=== PATIENT | female | born 1965 | race Caucasian/White ===

== ENCOUNTER 2017-01-27 14:37 | Inpatient (IN) | payer OTHER ==
[~2017-01-27] VITALS: Ht 157.5 cm; Wt 194.0 kg
[~2017-01-27 14:37] MED LIST: ACETAZOLAMIDE500 MG PO; ALAVERT10 MG PO; AMMONIUM LACTA224 GM TP; ANTIFUNGAL15 G1 TP; ASPIR-LOW81 MG PO; ATROVENT H200 INHALA IH; BIOTENE ORALBAL45 ML MM; BUTRANS1 EAC4 TD; CLEOCIN300 MG PO; CLONAZEPAM0.5 MG PO; CLOTRIMAZOLE-BE15 GM TP; COMBIVENT; COMBIVENT200 INHALA IH; CYCLOBENZAPRINE5 MG PO; CYMBALTA30 MG PO; CYMBALTA60 MG PO; Cymbalta PO; DARVOCET-N 1001 EAC1 PO; DIAMOX PO; DIAMOX SEQUELS500 MG PO; DITROPAN XL10 MG PO; DOXYCYCLINE HY100 MG PO; DULERA 100 MCG/13 GM IH; DULERA 200 MCG/13 GM IH; DULOXETINE HCL60 MG PO; FAMCICLOVIR500 MG PO; FLEXERIL10 MG PO; FLEXERIL5 MG PO; FLONASE16 G1 BOTH NARES; FLOVENT DISKUS1 DIS2; FLOVENT DISKUS1 DIS2 IH; FOLIC ACID1 MG PO; Famvir PO; GABAPENTIN300 MG; GABAPENTIN300 MG PO; GABAPENTIN600 MG PO; GLUCOPHAGE XR750 MG PO; GOLD BOND ULT D96 GM TP; HUMALOG100 UNIT/1 SC; HYDROCODON-ACE1 EAC7 PO; IBUPROFEN800 MG PO; ICY HOT CREAM35.4 G1 TP; JANUVIA100 MG PO; JANUVIA25 M1 PO; KEFLEX250 MG PO; KEFLEX500 MG PO; KENALOG,ARISTOC80 GM TP; KLONOPIN0.5 M1 PO; KlonoPIN PO; LAC-HYDRIN 5113 GM TP; LAMICTAL XR100 MG; LAMICTAL XR100 MG PO; LAMICTAL XR200 MG; LAMICTAL XR300 MG PO; LAMICTAL100 MG PO; LAMICTAL200 MG PO; LAMOTRIGINE100 MG PO; LASIX20 MG PO; LASIX40 MG PO; LASIX80 MG PO; LEVEMIR FL100 UNIT/1 SC; LEVEMIR100 UNIT/2 SC; LEVOTHROID200 MCG PO; LEVOTHYROXINE200 MC1 PO; LISINOPRIL-HCT1 EAC3 PO; LISINOPRIL-HCT1 EACH PO; Levothroid,Synthroid PO; METFORMIN HCL500 MG PO; METFORMIN HCL750 MG PO; METHYLDOPA250 MG PO; MOTRIN800 MG PO; NEOSPORIN + P28.3 GM TP; NEURONTIN300 MG PO; NEURONTIN600 MG PO; NEXIUM20 MG PO; NEXIUM40 MG PO; NICOTINE PATCH1 EAC2 TD; NORCO 5/3251 TABLET PO; NOVOLOG PE100 UNITS/ SC; NUCYNTA ER50 MG PO; NUCYNTA50 MG PO; Neurontin PO; OMEPRAZOLE40 M1 PO; ONDANSETRON ODT4 MG PO; OXYBUTYNIN CHLOR5 M1 PO; OXYCODONE-ACET1 EACH PO; OXYCONTIN10 MG PO; PLAVIX75 MG PO; POTASSIUM CHLO20 ME1 PO; PRAVACHOL40 MG PO; PRINZIDE 20-121 EACH PO; PROAIR HFA8.5 GM IH; PROVENTIL,2.5 MG/0.5 IH; PROVENTIL,2.5 MG/3 M IH; Proair HFA IH; REQUIP0.25 MG PO; REQUIP1 MG PO; REQUIP2 MG PO; ROPINIROLE HCL1 MG PO; SIMVASTATIN20 MG PO; SINGULAIR10 MG PO; SYMBICORT60 INHALAT IH; SYNTHROID200 MCG PO; SYNTHROID50 MCG PO; Singulair PO; TRAMADOL HCL50 MG PO; ULTRAM50 MG PO; VALACYCLOVIR500 MG PO; VALTREX1000 MG PO; VALTREX50 MG/ML PO; VENTOLIN HFA18 GM IH; VIBRAMYCIN100 MG PO; VITAMIN D31000 UNI2 PO; VITAMIN D310000 UNIT PO; ZESTORETIC 20-1 EAC2 PO; ZOCOR20 MG PO; ZOFRAN ODT4 MG PO; ZUPLENZ4 MG PO; Zestoretic,Prinzide PO; Zocor PO; [UNRECOGNIZED DRUG - OTHER]
[2017-01-27 15:29] LABS: POINT-OF-CARE METER ID UU13113702
[2017-01-27 15:53] LABS: EOSINOPHIL (%) 2.1 % (0-5); EOSINOPHIL COUNT 0.2 K/uL (0-0.3); HEMATOCRIT 41.6 % (36.0-46.0); IMMATURE GRANULOCYTE (%) 0.3 % (0.0-0.7); IMMATURE GRANULOCYTE COUNT 0.3 K/uL; LYMPHOCYTE COUNT 1.8 K/uL (1.0-2.8); MCH 26.3 PG (29.0-34.0); MCHC 28.6 G/DL (30.0-36.0); MEAN PLAT.VOLUME 9.3 uM^3 (9.5-12.4); MONOCYTE (%) 4.7 % (3-12); MONOCYTE COUNT 0.5 K/uL (0-0.8); NEUTROPHIL (%) 73.9 % (45-76); NEUTROPHIL COUNT 7.3 K/uL (1.8-6.4); PLATELET COUNT 285 K/uL (156-360); RBC DIS.WIDTH-CV 17.9 % (11.8-14.6); RBC DIS.WIDTH-SD 57.8 % (39-53); RED BLOOD COUNT 4.52 M/uL (3.80-5.20); WHITE BLOOD COUNT 9.9 K/uL (4.1-10.2)
[2017-01-27 16:05] LABS: CHLORIDE 96 mEq/L (99-109); POTASSIUM 3.9 mEq/L (3.7-5.4); SODIUM 135 mEq/L (136-147)
[2017-01-27 16:07] LABS: GLUCOSE 150 mg/dL (70-99)
[2017-01-27 16:08] LABS: ANION GAP 14 MEQ/L (2-14)
[2017-01-27 16:09] LABS: TOTAL BILIRUBIN 0.5 mg/dL (0.0-1.0)
[2017-01-27 16:10] LABS: ALKALINE PHOSPHATASE 100 IU/L (3-129)
[2017-01-27 16:11] LABS: GFR ESTIMATE (CALCULATED) 14 mL/min/
[2017-01-27 16:12] LABS: UREA NITROGEN (BUN) 28 mg/dL (9-23)
[2017-01-27 16:13] LABS: TROP-I INTERPRETATION NEGATIVE; TROPONIN-I < 0.01 ng/mL (0.0-0.30)
[2017-01-27 18:15] LABS: ADD MIUA? YES; BILIRUBIN MODERATE; BLOOD NEGATIVE; COLOR AMBER ((YELLOW)); GLUCOSE (STRIP) NEGATIVE; KETONES 5; LEUKOCYTES TRACE; NITRITE NEGATIVE; PROTEIN (STRIP) 100; SPECIFIC GRAVITY 1.023 (1.000-1.030)
[2017-01-27 18:37] LABS: BACTERIA RARE /HPF; EPITHELIAL CELLS 1+ /HPF; HYALINE CASTS 0-5 /LPF; MUCUS TRACE /LPF; WHITE BLOOD CELLS 20-30 /HPF (0-5); WHITE BLOOD CELLS CLUMP FEW /HPF (0-5)
[2017-01-27 18:46] LABS: ICTOTEST NEGATIVE
[2017-01-27] MEDS ORDERED: ALBUTEROL2.5 MG/3 M IH (19:50)
[2017-01-27] MEDS ORDERED: LOTRISONE15 GM TP (19:52)
[2017-01-27] MEDS ORDERED: CYMBALTA60 MG PO (19:52)
[2017-01-27] MEDS ORDERED: FLEXERIL5 MG PO (19:53)
[2017-01-27] MEDS ORDERED: DIAMOX SEQUELS500 MG PO (19:54)
[2017-01-27] MEDS ORDERED: DULERA 200 MCG/13 GM IH (19:54)
[2017-01-27] MEDS ORDERED: FLONASE16 G1 BOTH NARES (19:54)
[2017-01-27] MEDS ORDERED: LASIX40 MG PO (19:55)
[2017-01-27] MEDS ORDERED: NEURONTIN300 MG PO (19:57)
[2017-01-27] MEDS ORDERED: HUMALOG100 UNIT/1 SC ×2 (19:58→19:59)
[2017-01-27] MEDS ORDERED: PERCOCET 5/31 TABLET PO (19:59)
[2017-01-27] MEDS ORDERED: MOTRIN800 MG PO (20:00)
[2017-01-27] MEDS ORDERED: KLONOPIN0.5 M1 PO (20:00)
[2017-01-27] MEDS ORDERED: JANUVIA100 MG PO (20:00)
[2017-01-27] MEDS ORDERED: LAMICTAL XR100 MG PO (20:02)
[2017-01-27] MEDS ORDERED: LEVEMIR100 UNIT/2 SC (20:02)
[2017-01-27] MEDS ORDERED: SYNTHROID200 MCG PO (20:02)
[2017-01-27] MEDS ORDERED: OXYBUTYNIN CHLOR5 M1 PO (20:03)
[2017-01-27] MEDS ORDERED: ZOFRAN4 MG PO (20:03)
[2017-01-27] MEDS ORDERED: PROAIR HFA8.5 GM IH (20:03)
[2017-01-27] MEDS ORDERED: PRINZIDE 20-121 EACH PO (20:03)
[2017-01-27] MEDS ORDERED: SINGULAIR10 MG PO (20:04)
[2017-01-27] MEDS ORDERED: REQUIP1 MG PO (20:04)
[2017-01-27] MEDS ORDERED: VALTREX1000 MG PO (20:05)
[2017-01-27] MEDS ORDERED: SYNTHROID50 MCG PO (20:06)
[2017-01-27 23:40] VITALS: BP 125/55
[2017-01-27 23:50] VITALS: BP 126/55
[2017-01-28] VITALS (43 sets, daily range): BP systolic 65–151; BP diastolic 35–81
[2017-01-28 00:36] LABS: ADD MIUA? NO; BILIRUBIN NEGATIVE; BLOOD NEGATIVE; COLOR STRAW ((YELLOW)); GLUCOSE (STRIP) NEGATIVE; KETONES NEGATIVE; LEUKOCYTES NEGATIVE; NITRITE NEGATIVE; PROTEIN (STRIP) NEGATIVE; SPECIFIC GRAVITY 1.005 (1.000-1.030); UROBILINOGEN 0.2 MG/DL (0.2-1.0)
[2017-01-28 00:47] LABS: BASE EXCESS 0.4 mEq/L (-3 to +3); BICARBONATE 29.6 mEq/L (22-26); CARBOXY HGB 4.5 % (0-5); COMMENTS - BLOOD GASES C+; METHEMOGLOBIN 1.4 % (0-1.5); PCO2 69 mm Hg (35-45); PO2 70 mm Hg (80-100); SITE LR; pH 7.24 (7.35-7.45)
[2017-01-28 00:48] LABS: DEVICE NC; O2 FLOW 4 L/MIN; TOTAL RESP RATE 16 resp/min
[2017-01-28 01:24] LABS: METH RESISTANT S AUREUS PCR NEGATIVE (NEGATIVE)
[2017-01-28 01:25] LABS: PROBE CHECK PASS; SPECIMEN PROCESSING CONTROL PASS
[2017-01-28 02:09] LABS: POINT-OF-CARE METER ID UU13113731
[2017-01-28 02:14] LABS: BASE EXCESS 0.5 mEq/L (-3 to +3); BICARBONATE 28.9 mEq/L (22-26); CARBOXY HGB 4.1 % (0-5); METHEMOGLOBIN 1.2 % (0-1.5); PCO2 63 mm Hg (35-45); PO2 63 mm Hg (80-100); pH 7.27 (7.35-7.45)
[2017-01-28 02:15] LABS: COMMENTS - BLOOD GASES C+; DEVICE BIPAP 18/12; O2 FLOW 2 L/MIN; SITE LR; TOTAL RESP RATE 12 resp/min
[2017-01-28 04:25] LABS: AMPHETAMINES QUANT VALUE 0 NG/ML; BARBITUATES QUANT VALUE 0 NG/ML; BENZODIAZEPINES QUANT VALUE 0 NG/ML; BENZODIAZEPINES, URINE SCREEN Negative (200 ng/mL); MARIJUANA QUANT VALUE 0 NG/ML; OPIATES QUANTITATIVE VALUE 0 NG/ML; PHENCYCLIDINE QUANT VALUE 0 NG/ML
[2017-01-28 05:03] LABS: BASE EXCESS 3.3 mEq/L (-3 to +3); BICARBONATE 30.9 mEq/L (22-26); CARBOXY HGB 3.8 % (0-5); COMMENTS - BLOOD GASES C+; METHEMOGLOBIN 1.4 % (0-1.5); PCO2 60 mm Hg (35-45); PO2 57 mm Hg (80-100); SITE RR; pH 7.32 (7.35-7.45)
[2017-01-28 05:04] LABS: DEVICE BIPAP 18/12; O2 FLOW 2 L/MIN; TOTAL RESP RATE 16 resp/min
[2017-01-28 05:36] LABS: POINT-OF-CARE METER ID UU14174217
[2017-01-28 05:39] LABS: HEMATOCRIT 44.4 % (36.0-46.0); MCH 25.4 PG (29.0-34.0); MCHC 28.6 G/DL (30.0-36.0); MCV 88.8 FL (83-99); MEAN PLAT.VOLUME 9.5 uM^3 (9.5-12.4); PLATELET COUNT 315 K/uL (156-360); RBC DIS.WIDTH-CV 17.6 % (11.8-14.6); RBC DIS.WIDTH-SD 57.5 % (39-53); WHITE BLOOD COUNT 10.9 K/uL (4.1-10.2)
[2017-01-28 05:46] LABS: EOSINOPHIL (%) 1.8 % (0-5); EOSINOPHIL COUNT 0.2 K/uL (0-0.3); IMMATURE GRANULOCYTE (%) 0.3 % (0.0-0.7); LYMPHOCYTE COUNT 1.3 K/uL (1.0-2.8); MONOCYTE (%) 3.9 % (3-12); MONOCYTE COUNT 0.4 K/uL (0-0.8); NEUTROPHIL (%) 82.2 % (45-76)
[2017-01-28 06:11] LABS: ANION GAP 9 MEQ/L (2-14); CHLORIDE 98 MEQ/L (99-109); GLUCOSE 171 mg/dL (70-99); POTASSIUM 3.9 MEQ/L (3.7-5.4); SAMPLE HEMOLYSIS CHECK 0; SAMPLE ICTERIC CHECK 0; SAMPLE LIPEMIA CHECK 0; SODIUM 137 MEQ/L (136-147); UREA NITROGEN (BUN) 25 mg/dL (9-23)
[2017-01-28 06:32] LABS: GFR ESTIMATE (CALCULATED) 24 mL/min/
[2017-01-28 10:37] LABS: POINT-OF-CARE METER ID UU14174217
[2017-01-28 12:26] LABS: BASE EXCESS 3.5 mEq/L (-3 to +3); BICARBONATE 31.5 mEq/L (22-26); COMMENTS - BLOOD GASES AC+; METHEMOGLOBIN 1.2 % (0-1.5); O2 FLOW 2 L/MIN; PCO2 64 mm Hg (35-45); PO2 66 mm Hg (80-100); SITE LR
[2017-01-28 12:27] LABS: DEVICE NASAL CANNULA; TOTAL RESP RATE 14 resp/min
[2017-01-28] MEDS ORDERED: LAMICTAL100 MG PO (14:26)
[2017-01-28] MEDS ORDERED: REQUIP1 MG PO (14:27)
== END 2017-01-29 00:20 | disposition left against medical advice (07) | DRG 194 ==
LOC: EME 14:37 → EDOF 22:33 → 4WEST 22:33
PROVIDERS: Emergency Medicine; Internal Medicine Nephrology; Obstetrics & Gynecology
PROC: 06HM33Z Insertion of Infusion Device into Right Femoral Vein, Percutaneous Approach (ICD-10-PCS; principal; 2017-01-27)
DX: J18.9 Pneumonia, unspecified organism (principal); N17.9 Acute kidney failure, unspecified; E87.2 Acidosis; R56.9 Unspecified convulsions; E66.01 Morbid (severe) obesity due to excess calories; I95.9 Hypotension, unspecified; E11.40 Type 2 diabetes mellitus with diabetic neuropathy, unspecified; I50.9 Heart failure, unspecified; I10 Essential (primary) hypertension; J44.9 Chronic obstructive pulmonary disease, unspecified; E78.5 Hyperlipidemia, unspecified; G93.2 Benign intracranial hypertension; G89.29 Other chronic pain; I89.0 Lymphedema, not elsewhere classified; F17.210 Nicotine dependence, cigarettes, uncomplicated; E03.9 Hypothyroidism, unspecified; D64.9 Anemia, unspecified; F41.9 Anxiety disorder, unspecified; F32.9 Major depressive disorder, single episode, unspecified; K76.0 Fatty (change of) liver, not elsewhere classified; G43.909 Migraine, unspecified, not intractable, without status migrainosus; Z90.49 Acquired absence of other specified parts of digestive tract
CPT/HCPCS: 36600; 71010; 74176; 80048; 80053; 80306 90; 81003; 82140; 82803; 82948; 83605; 83735; 83880; 84100; 84484; 85025; 87040; 87086; 87641; 93005; 94002; 94640; 94640 76; 94660; 94799; 99202; 99281; 99285; J1644; J1815; J2543; J3370; J7030; J7050; J7120; S0028

== ENCOUNTER 2017-05-07 20:38 | Emergency (ER) | payer OTHER ==
[~2017-05-07] VITALS: Ht 160 cm; Wt 205.0 kg
[~2017-05-07 20:38] MED LIST changes: +ALBUTEROL2.5 MG/3 M IH; +LOTRISONE15 GM TP; +PERCOCET 5/31 TABLET PO; +ZOFRAN4 MG PO
[2017-05-07 21:56] LABS: BASOPHIL COUNT 0.1 K/uL (0-0.1); EOSINOPHIL (%) 2.5 % (0-5); EOSINOPHIL COUNT 0.2 K/uL (0-0.3); HEMATOCRIT 42.1 % (36.0-46.0); IMMATURE GRANULOCYTE (%) 0.6 % (0.0-0.7); IMMATURE GRANULOCYTE COUNT 0.1 K/uL; INSTRUMENT ABS NEUTROPHIL CT 6.6 K/uL; LYMPHOCYTE COUNT 1.6 K/uL (1.0-2.8); MCH 23.8 PG (29.0-34.0); MCHC 28.3 G/DL (30.0-36.0); MCV 84.4 FL (83-99); MEAN PLAT.VOLUME 8.7 uM^3 (9.5-12.4); MONOCYTE (%) 4.4 % (3-12); MONOCYTE COUNT 0.4 K/uL (0-0.8); NEUTROPHIL (%) 74.4 % (45-76); NEUTROPHIL COUNT 6.6 K/uL (1.8-6.4); PLATELET COUNT 296 K/uL (156-360); RBC DIS.WIDTH-CV 18.6 % (11.8-14.6); RBC DIS.WIDTH-SD 56.3 % (39-53); RED BLOOD COUNT 4.99 M/uL (3.80-5.20); WHITE BLOOD COUNT 8.9 K/uL (4.1-10.2)
[2017-05-07 22:07] LABS: CHLORIDE 99 mEq/L (99-109); POTASSIUM 3.6 mEq/L (3.7-5.4); SODIUM 137 mEq/L (136-147)
[2017-05-07 22:09] LABS: GLUCOSE 161 mg/dL (70-99)
[2017-05-07 22:10] LABS: ANION GAP 9 MEQ/L (2-14)
[2017-05-07 22:11] LABS: TOTAL BILIRUBIN 0.5 mg/dL (0.0-1.0)
[2017-05-07 22:12] LABS: ALKALINE PHOSPHATASE 104 IU/L (3-129)
[2017-05-07 22:13] LABS: GFR ESTIMATE (CALCULATED) 55 mL/min/
[2017-05-07 22:14] LABS: UREA NITROGEN (BUN) 11 mg/dL (9-23)
[2017-05-08 08:44] VITALS: BP 115/61
== END 2017-05-08 08:46 | disposition home or self-care (01) ==
LOC: EME → EDBD 20:38 → EME 05-08 08:46
PROVIDERS: Emergency Medicine
DX: I89.0 Lymphedema, not elsewhere classified (principal); M79.604 Pain in right leg; M79.605 Pain in left leg; J44.9 Chronic obstructive pulmonary disease, unspecified; I11.0 Hypertensive heart disease with heart failure; I50.9 Heart failure, unspecified; E11.9 Type 2 diabetes mellitus without complications; M79.7 Fibromyalgia; E78.5 Hyperlipidemia, unspecified; K21.9 Gastro-esophageal reflux disease without esophagitis; Z86.73 Personal history of transient ischemic attack (TIA), and cerebral infarction without residual deficits; R56.9 Unspecified convulsions; E03.9 Hypothyroidism, unspecified; E66.01 Morbid (severe) obesity due to excess calories; Z68.45 Body mass index [BMI] 70 or greater, adult; Z79.4 Long term (current) use of insulin; F17.200 Nicotine dependence, unspecified, uncomplicated
CPT/HCPCS: 80053; 83880; 85025; 99281; 99285; J1170; J7050

== ENCOUNTER 2017-08-17 19:39 | Emergency (ER) | payer OTHER ==
[~2017-08-17] VITALS: Ht 157.5 cm; Wt 193.0 kg
[2017-08-18 00:34] VITALS: BP 167/72
== END 2017-08-18 00:51 | disposition home or self-care (01) ==
LOC: EME 19:39
DX: G43.909 Migraine, unspecified, not intractable, without status migrainosus (principal); I89.0 Lymphedema, not elsewhere classified; I13.0 Hypertensive heart and chronic kidney disease with heart failure and stage 1 through stage 4 chronic kidney disease, or unspecified chronic kidney disease; I50.9 Heart failure, unspecified; E11.22 Type 2 diabetes mellitus with diabetic chronic kidney disease; N18.9 Chronic kidney disease, unspecified; Z79.4 Long term (current) use of insulin; Z86.73 Personal history of transient ischemic attack (TIA), and cerebral infarction without residual deficits; E03.9 Hypothyroidism, unspecified; J44.9 Chronic obstructive pulmonary disease, unspecified; E78.5 Hyperlipidemia, unspecified; F17.200 Nicotine dependence, unspecified, uncomplicated; E66.01 Morbid (severe) obesity due to excess calories; M79.7 Fibromyalgia
CPT/HCPCS: 99281; 99284; J1885

== ENCOUNTER 2017-09-14 10:30 | Emergency (ER) | payer OTHER ==
[~2017-09-14] VITALS: Ht 157.5 cm; Wt 250.0 kg
[2017-09-14 11:43] LABS: BASOPHIL COUNT 0.1 K/uL (0-0.1); EOSINOPHIL (%) 2.1 % (0-5); EOSINOPHIL COUNT 0.1 K/uL (0-0.3); HEMATOCRIT 39.8 % (36.0-46.0); IMMATURE GRANULOCYTE (%) 0.9 % (0.0-0.7); IMMATURE GRANULOCYTE COUNT 0.1 K/uL; INSTRUMENT ABS NEUTROPHIL CT 3.9 K/uL; LYMPHOCYTE COUNT 1.3 K/uL (1.0-2.8); MCH 24.5 PG (29.0-34.0); MCHC 27.9 G/DL (30.0-36.0); MCV 87.9 FL (83-99); MONOCYTE (%) 6.1 % (3-12); MONOCYTE COUNT 0.4 K/uL (0-0.8); NEUTROPHIL (%) 67.3 % (45-76); NEUTROPHIL COUNT 3.9 K/uL (1.8-6.4); RBC DIS.WIDTH-CV 18.8 % (11.8-14.6); RBC DIS.WIDTH-SD 59.8 % (39-53); RED BLOOD COUNT 4.53 M/uL (3.80-5.20); WHITE BLOOD COUNT 5.8 K/uL (4.1-10.2)
[2017-09-14 11:52] LABS: CHLORIDE 94 mEq/L (99-109); POTASSIUM 3.5 mEq/L (3.7-5.4); SODIUM 136 mEq/L (136-147)
[2017-09-14 11:53] LABS: GLUCOSE 143 mg/dL (70-99)
[2017-09-14 11:55] LABS: ANION GAP 10 MEQ/L (2-14)
[2017-09-14 11:57] LABS: GFR ESTIMATE (CALCULATED) > 59 mL/min/
[2017-09-14 11:58] LABS: UREA NITROGEN (BUN) 10 mg/dL (9-23)
[2017-09-14 12:17] LABS: MEAN PLAT.VOLUME 8.9 uM^3 (9.5-12.4); PLAT.SUFFICIENCY ADEQUATE; PLATELET COUNT 260 K/uL (156-360)
[2017-09-14 14:34] LABS: ADD MIUA? YES; BILIRUBIN NEGATIVE; BLOOD LARGE; COLOR YELLOW ((YELLOW)); GLUCOSE (STRIP) NEGATIVE; KETONES NEGATIVE; LEUKOCYTES MODERATE; NITRITE NEGATIVE; PROTEIN (STRIP) 30; SPECIFIC GRAVITY 1.011 (1.000-1.030)
[2017-09-14 14:39] LABS: BACTERIA RARE /HPF; CALCIUM OXALATE CRYSTALS 3+ /HPF; EPITHELIAL CELLS 1+ /HPF; MUCUS NONE SEEN /LPF; RED BLOOD CELLS 15-20 /HPF (0-5); UCUL ADDED? YES
[2017-09-14 15:08] LABS: BASE EXCESS 11.9 mEq/L (-3 to +3); BICARBONATE 39.9 mEq/L (22-26); CARBOXY HGB 5.2 % (0-5); COMMENTS - BLOOD GASES A+C+; DEVICE NC; METHEMOGLOBIN 1.1 % (0-1.5); O2 FLOW 4 L/MIN; PCO2 69 mm Hg (35-45); PO2 67 mm Hg (80-100); SITE RR; pH 7.37 (7.35-7.45)
[2017-09-14 15:57] VITALS: BP 135/69
== END 2017-09-14 16:15 | disposition home or self-care (01) ==
LOC: EME 10:30
PROVIDERS: Emergency Medicine
DX: I87.8 Other specified disorders of veins (principal); G89.29 Other chronic pain; E66.01 Morbid (severe) obesity due to excess calories; I13.0 Hypertensive heart and chronic kidney disease with heart failure and stage 1 through stage 4 chronic kidney disease, or unspecified chronic kidney disease; I50.9 Heart failure, unspecified; N18.9 Chronic kidney disease, unspecified; E11.22 Type 2 diabetes mellitus with diabetic chronic kidney disease; Z99.81 Dependence on supplemental oxygen; F17.200 Nicotine dependence, unspecified, uncomplicated; Z79.4 Long term (current) use of insulin; J44.9 Chronic obstructive pulmonary disease, unspecified; E78.5 Hyperlipidemia, unspecified; M79.7 Fibromyalgia; K21.9 Gastro-esophageal reflux disease without esophagitis; E03.9 Hypothyroidism, unspecified; F32.9 Major depressive disorder, single episode, unspecified; Z86.73 Personal history of transient ischemic attack (TIA), and cerebral infarction without residual deficits; Z88.8 Allergy status to other drugs, medicaments and biological substances; F41.9 Anxiety disorder, unspecified
CPT/HCPCS: 36600; 80048; 81003; 82803; 83605; 85025; 87040; 87086; 99281; 99285

== ENCOUNTER 2017-10-03 14:00 | Emergency (ER) | payer OTHER ==
[~2017-10-03] VITALS: Ht 157.5 cm; Wt 256.8 kg
[2017-10-03 16:26] LABS: MCH 25.2 PG (29.0-34.0); MCHC 27.7 G/DL (30.0-36.0); MCV 90.9 FL (83-99); RBC DIS.WIDTH-CV 19.8 % (11.8-14.6); RBC DIS.WIDTH-SD 65.4 % (39-53); RED BLOOD COUNT 4.29 M/uL (3.80-5.20); WHITE BLOOD COUNT 4.1 K/uL (4.1-10.2)
[2017-10-03 16:57] LABS: EOSINOPHIL (%) 2.5 % (0-5); EOSINOPHIL COUNT 0.1 K/uL (0-0.3); IMMATURE GRANULOCYTE (%) 0.2 % (0.0-0.7); INSTRUMENT ABS NEUTROPHIL CT 2.5 K/uL; LYMPHOCYTE COUNT 1.2 K/uL (1.0-2.8); MEAN PLAT.VOLUME 9.7 uM^3 (9.5-12.4); MONOCYTE (%) 5.2 % (3-12); MONOCYTE COUNT 0.2 K/uL (0-0.8); NEUTROPHIL (%) 60.9 % (45-76); NEUTROPHIL COUNT 2.5 K/uL (1.8-6.4); PLAT.SUFFICIENCY DECREASED; PLATELET COUNT 54 K/uL (156-360)
[2017-10-03 17:01] LABS: CHLORIDE 94 mEq/L (99-109); POTASSIUM 3.2 mEq/L (3.7-5.4); SODIUM 136 mEq/L (136-147)
[2017-10-03 17:03] LABS: GLUCOSE 126 mg/dL (70-99)
[2017-10-03 17:04] LABS: ANION GAP 8 MEQ/L (2-14)
[2017-10-03 17:05] LABS: TOTAL BILIRUBIN 0.7 mg/dL (0.0-1.0)
[2017-10-03 17:06] LABS: ALKALINE PHOSPHATASE 71 IU/L (3-129)
[2017-10-03 17:07] LABS: GFR ESTIMATE (CALCULATED) > 59 mL/min/
[2017-10-03 17:08] LABS: DIRECT BILIRUBIN 0.4 mg/dL (0.0-0.3); UREA NITROGEN (BUN) 7 mg/dL (9-23)
[2017-10-03 17:10] LABS: LIPASE 10 U/L (1.0-51.0)
[2017-10-03 18:59] LABS: ADD MIUA? YES; BILIRUBIN SMALL; BLOOD LARGE; COLOR AMBER ((YELLOW)); GLUCOSE (STRIP) NEGATIVE; KETONES NEGATIVE; LEUKOCYTES TRACE; NITRITE NEGATIVE; PROTEIN (STRIP) >=500; SPECIFIC GRAVITY 1.023 (1.000-1.030)
[2017-10-03 19:19] LABS: BACTERIA NONE SEEN /HPF; CASTS NONE SEEN /LPF; CRYSTALS NONE SEEN; EPITHELIAL CELLS 1+ /HPF; MUCUS NONE SEEN /LPF; RED BLOOD CELLS TNTC /HPF (0-5); WHITE BLOOD CELLS 0-5 /HPF (0-5)
[2017-10-04 07:28] VITALS: BP 165/84
== END 2017-10-04 08:38 | disposition short-term general hospital (02) ==
LOC: EME 14:00
PROVIDERS: Physician Assistant
DX: R10.31 Right lower quadrant pain (principal); R06.09 Other forms of dyspnea; T21.22XA Burn of second degree of abdominal wall, initial encounter; E66.01 Morbid (severe) obesity due to excess calories; Z68.45 Body mass index [BMI] 70 or greater, adult; X10.0XXA Contact with hot drinks, initial encounter; I89.0 Lymphedema, not elsewhere classified; R79.1 Abnormal coagulation profile; J44.9 Chronic obstructive pulmonary disease, unspecified; D69.6 Thrombocytopenia, unspecified; I13.0 Hypertensive heart and chronic kidney disease with heart failure and stage 1 through stage 4 chronic kidney disease, or unspecified chronic kidney disease; I50.9 Heart failure, unspecified; E11.22 Type 2 diabetes mellitus with diabetic chronic kidney disease; N18.9 Chronic kidney disease, unspecified; Z79.4 Long term (current) use of insulin; Z99.81 Dependence on supplemental oxygen; F17.200 Nicotine dependence, unspecified, uncomplicated; Z86.73 Personal history of transient ischemic attack (TIA), and cerebral infarction without residual deficits; K21.9 Gastro-esophageal reflux disease without esophagitis; E78.5 Hyperlipidemia, unspecified; F41.9 Anxiety disorder, unspecified; E03.9 Hypothyroidism, unspecified; M79.7 Fibromyalgia; F32.9 Major depressive disorder, single episode, unspecified; Z88.2 Allergy status to sulfonamides; Z88.8 Allergy status to other drugs, medicaments and biological substances
CPT/HCPCS: 71010; 80048; 80076; 81003; 83605; 83690; 83880; 85025; 85379; 87040; 93005; 99281; 99285; J1170; J1650; J1885; J7030; J7050